=== PATIENT | female | born 1995 | race Caucasian/White ===

== ENCOUNTER 2018-07-30 09:45 | Day surgery (SDC) | payer BC ==
[~2018-07-30 09:45] MED LIST: LACTATED RINGER'S 1,000 ML IV*
[2018-07-30] MEDS ORDERED: METOCLOPRAMIDE 10 MG INJ (11:37)
[2018-07-30] MEDS ORDERED: MIDAZOLAM 1 MG/ML 2 ML INJ (11:37)
[2018-07-30] MEDS ORDERED: ROCURONIUM 50 MG INJ ×2 (11:43→12:48)
[2018-07-30] MEDS ORDERED: PROPOFOL 20 ML (11:43)
[2018-07-30] MEDS ORDERED: DEXAMETHASONE 4 MG/ML 1 ML INJ (11:54)
[2018-07-30] MEDS ORDERED: HYDROmorphONE 1 MG/5 ML IV SYRINGE IV (12:00)
[2018-07-30] MEDS ORDERED: ONDANSETRON 4 MG INJ IV (12:00)
[2018-07-30] MEDS ORDERED: DIPHENHYDRAMINE 50 MG INJ IV (12:00)
[2018-07-30] MEDS ORDERED: MEPERIDINE 25 MG INJ IV (12:00)
[2018-07-30] MEDS: HYDROmorphONE 1 MG/5 ML IV SYRINGE IV ×2 (12:42→13:09)
[2018-07-30] MEDS ORDERED: FENTAnyl 50 MCG/ML VIAL (12:43)
[2018-07-30] MEDS ORDERED: NEOSTIGMINE 3 MG/3 ML SYRINGE (12:48)
[2018-07-30] MEDS ORDERED: GLYCOPYRROLATE 0.4 MG INJ (12:48)
== END 2018-07-30 14:01 | disposition home or self-care (01) ==
LOC: SDS 09:45
DX: J35.01 Chronic tonsillitis (principal)
CPT/HCPCS: 42821; 84703; 88302